=== PATIENT | male | born 1980 | race Caucasian/White ===

== ENCOUNTER 2016-12-17 02:35 | Emergency (ER) | payer MEDICAID, OTHER ==
[~2016-12-17] VITALS: Ht 165.1 cm; Wt 68.0 kg
[~2016-12-17 02:35] MED LIST: ADVIL
[2016-12-17 02:41] VITALS: BP 124/94
--- NOTE | 2016-12-17 02:49 | NUR ---
PATIENT TAKEN TO BED 04 VIA WHEELCHAIR PER TRIAGE NURSE.
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
--- NOTE | 2016-12-17 02:56 | NUR ---
Patient being evaluated by at bedside.
[2016-12-17] MEDS ORDERED: HYDROcodone/APAP 5/325 MG 1 TAB TAB PO ONE (03:00)
--- NOTE | 2016-12-17 03:16 | NUR ---
Patient discharged with v/s stable. Written and verbal after care instructions given and explained. Patient alert, oriented and verbalized understanding of instructions. Ambulatory with steady gait. All questions addressed prior to discharge. ID band removed. Patient advised to follow up with PMD. Rx of AMOCIXILLIN 250 MG, NORCO 5/325 MG, PERIDEX 0.12% SOLUTION given. Patient educated on indication of medication including possible reaction and side effects. Opportunity to ask questions provided and answered.
[2016-12-17 03:20] VITALS: BP 124/85
== END 2016-12-17 03:16 | disposition home or self-care (01) ==
LOC: MED 02:35
DX: L03.211 Cellulitis of face (principal); F17.210 Nicotine dependence, cigarettes, uncomplicated

== ENCOUNTER 2019-05-13 17:00 | Emergency (ER) | payer OTHER ==
[~2019-05-13] VITALS: Ht 165.1 cm; Wt 62.8 kg
[2019-05-13 17:13] VITALS: BP 116/77
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
[2019-05-13] MEDS ORDERED: KETOROLAC 60 MG/2 ML VIAL IM ONE (18:05)
--- NOTE | 2019-05-13 18:19 | NUR ---
PT TO RADIOLOGY
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
--- NOTE | 2019-05-13 19:22 | NUR ---
KNEE IMMOBILIZER SIZE 20" PLACED ON PT R KNEE. +CSM
--- NOTE | 2019-05-13 19:23 | NUR ---
PT GIVEN INSTRUCTION ON PROPER USE OF CRUTCHES. CRUTCHES FITTED TO PT HEIGHT AND ARM LENGTH. PT GIVEN INSTRUCTION ON USE OF CRUTCHES, INCLUDING SITTING TO STANDING AND VICE VERSA, AND WALKING. PT DEMONSTRATED SAFE USE FOR APPROXIMATELY 40 FEET, STATED HE FELT COMFORTABLE WITH USE.
[2019-05-13 19:29] VITALS: BP 119/74
--- NOTE | 2019-05-13 19:29 | NUR ---
Patient discharged with v/s stable. Written and verbal after care instructions given and explained. Patient alert, oriented and verbalized understanding of instructions. Ambulatory with steady gait. All questions addressed prior to discharge. Patient advised to follow up with PMD. Rx of Naprosyn and Jackson given. Patient educated on indication of medication including possible reaction and side effects. Opportunity to ask questions provided and answered.
== END 2019-05-13 19:29 | disposition home or self-care (01) ==
LOC: MED 17:00
DX: S20.219A Contusion of unspecified front wall of thorax, initial encounter (principal); S60.212A Contusion of left wrist, initial encounter; S89.91XA Unspecified injury of right lower leg, initial encounter; F17.210 Nicotine dependence, cigarettes, uncomplicated; Z79.899 Other long term (current) drug therapy; V29.40XA Motorcycle driver injured in collision with unspecified motor vehicles in traffic accident, initial encounter; Y93.55 Activity, bike riding; Y92.89 Other specified places as the place of occurrence of the external cause; Y99.8 Other external cause status
CPT/HCPCS: 29505; 71045; 73110; 73562; 96372; 99283; J1885